=== PATIENT | male | born 1955 | race Native Hawaiian/Other Pacific Islander ===

== ENCOUNTER 2019-03-31 10:53 | Emergency (ER) | payer MEDICAID, MEDICARE ==
--- NOTE | 2019-03-31 13:02 | ED Physician Documentation ---
PD HPI SKIN - Stated complaint Stated Complaint: RASH ON FACE - Chief complaint Chief Complaint: Wound - History obtained from History obtained from: Patient - History of Present Illness Timing - onset: How many weeks ago (1) Timing - duration: Weeks (1) Timing - details: Gradual onset Pain level max: 0 Pain level now: 0 Location: Face Quality / character: Discolored (eryhtematous), Swelling. No: Itchy, Painful, Burning, Raised, Vesicular, Crusted, Draining Improved by: Other (hasn't tried anything) Worsened by (comment): COMMENT (blowing his nose) Associated symptoms: No: Fever, Myalgias, Joint pain, Headache, Facial swelling, Dyspnea, Abd pain, N/V/D, Urinary sx Contributing factors: No: Exposed to medication, Exposed to food, Exposed to soa p / lotion, Exposed to Poison benton/oak, Insect bite /sting, Recent illness Recently seen: Not recently seen Review of Systems Constitutional: denies: Fever, Chills GI: denies: Vomiting Neurologic: denies: Headache PD PAST MEDICAL HISTORY - Past Medical History Past Medical History: Yes Cardiovascular: Hypertension - Past Surgical History Past Surgical History: Yes General: Appendectomy - Present Medications Home Medications: Ambulatory Orders Medication Instructions Recorded Confirmed predniSONE [Prednisone] 20 mg PO DAILY #5 tablet 03/31/19 - Allergies Allergies/Adverse Reactions: Allergies Allergy/AdvReac Type Severity Reaction Status Date / Time No Known Drug Allergies Allergy Verified 11/26/13 14:02 - Living Situation Living Arrangement: reports: At home - Social History Does the pt smoke?: Yes Smoking Status: Current some day smoker Does the pt drink ETOH?: No Does the pt have substance abuse?: No - Immunizations Immunizations are current?: No Immunizations: No immun - POLST Patient has POLST: No PD ED PE NORMAL - Vitals Vital signs reviewed: Yes - General General: Alert and oriented X 3, No acute distress - HEENT HEENT: Moist mucous membranes - Neck Neck: Supple, no meningeal sign - Cardiac Cardiac: RRR - Respiratory Respiratory: No respiratory distress, Clear bilaterally - Derm Derm: Warm and dry, Other (Erythematous rash to the bilateral nasolabial folds.) - Neuro Neuro: Alert and oriented X 3 - Psych Psych: Normal mood, Normal affect Results - Vitals Vitals: Vital Signs - 24 hr 03/31/19 11:19 Temperature 37 C Heart Rate 77 Respiratory 18 Rate Blood Pressure 132/95 H O2 Saturation 99 Oxygen O2 Source Room air PD MEDICAL DECISION MAKING - ED course Complexity details: considered differential, d/w patient ED course: 63-year-old male with a facial rash. Will place on a small dose of prednisone and see if this helps some. No fevers. No coughing. No signs of anaphylaxis. Patient counseled regarding signs and symptoms for which I believe and urgent re-evaluation would be necessary. Patient with good understanding of and agreement to plan and is comfortable going home at this time This document was made in part using voice recognition software. While efforts are made to proofread this document, sound alike and grammatical errors may occu r. Departure - Departure Disposition: 01 Home, Self Care Clinical Impression: Dermatitis Condition: Good Instructions: ED Dermatitis Non Specific Rash Follow-Up: your,doctor in 1 week [Other] Prescriptions: predniSONE [Prednisone] 20 mg PO DAILY #5 tablet Comments: Use the steroids as prescribed. Return if you worsen. Follow-up with your doctor for further care.
[2019-03-31 13:24] VITALS: BP 174/101
== END 2019-03-31 13:24 | disposition home or self-care (01) ==
LOC: ED 10:53
DX: L30.9 Dermatitis, unspecified (principal); I10 Essential (primary) hypertension; F17.200 Nicotine dependence, unspecified, uncomplicated
CPT/HCPCS: 99282; 99284

== ENCOUNTER 2020-01-23 12:49 | Emergency (ER) | payer MEDICARE, MEDICAID ==
[2020-01-23 12:56] VITALS: BP 179/86
--- NOTE | 2020-01-23 13:39 | ED Physician Documentation ---
PD HPI SKIN - Stated complaint Stated Complaint: RASH - Chief complaint Chief Complaint: Wound - History obtained from History obtained from: Patient - History of Present Illness Timing - onset: Other (1 year) Pain level max: 0 Pain level now: 0 Location: Face Quality / character: Itchy. No: Painful, Burning Improved by: Oral steroids Worsened by (comment): COMMENT (nothing) Associated symptoms: No: Fever, Myalgias, Joint pain, Headache, Facial swelling, Dyspnea, Abd pain, N/V/D, Urinary sx Recently seen: Not recently seen - Additional information Additional information: 64-year-old male presents to the emergency department with a recurrent rash on his face. He was seen here about 10 months ago for the same, cleared up with steroids, now has recurred. He never followed up with his doctor. Nothing makes it better or worse. No new soaps, detergents, lotions. No fevers. No chills. Review of Systems Constitutional: denies: Fever, Chills Nose: denies: Rhinorrhea / runny nose, Congestion Throat: denies: Sore throat Cardiac: denies: Chest pain / pressure Respiratory: denies: Cough GI: denies: Nausea, Vomiting Musculoskeletal: denies: Neck pain, Back pain Neurologic: denies: Headache PD PAST MEDICAL HISTORY - Past Medical History Cardiovascular: Hypertension - Past Surgical History Past Surgical History: Yes General: Appendectomy - Present Medications Home Medications: Ambulatory Orders Medication Instructions Recorded Confirmed predniSONE [Deltasone] 10 mg PO [id number] #42 tab 01/23/20 - Allergies Allergies/Adverse Reactions: Allergies Allergy/AdvReac Type Severity Reaction Status Date / Time No Known Drug Allergies Allergy Verified 01/23/20 12:56 - Social History Does the pt smoke?: Yes Smoking Status: Current every day smoker Does the pt drink ETOH?: No Does the pt have substance abuse?: No - Immunizations Immunizations are current?: No Immunizations: No immun - POLST Patient has POLST: No PD ED PE NORMAL - Vitals Vital signs reviewed: Yes - General General: Alert and oriented X 3, No acute distress - HEENT HEENT: Moist mucous membranes - Neck Neck: Supple, no meningeal sign - Cardiac Cardiac: RRR - Respiratory Respiratory: No respiratory distress, Clear bilaterally - Derm Derm: Warm and dry, Other (mild erythematous rash to the nose and cheeks and forehead. no scaling. no warmth.) - Neuro Neuro: Alert and oriented X 3 Results - Vitals Vitals: Vital Signs - 24 hr 01/23/20 12:53 Temperature 36.4 C L Heart Rate 93 Respiratory 20 Rate Blood Pressure 179/86 H O2 Saturation 96 Oxygen O2 Source Room air PD MEDICAL DECISION MAKING - ED course Complexity details: reviewed old records, considered differential, d/w patient ED course: Patient is a 64-year-old male who presents to the emergency department the facial rash today. Improved with steroids last time, I will place him back on prednisone. We will have him follow-up with his doctor for further care. No signs of infection. Patient counseled regarding signs and symptoms for which I believe and urgent re-evaluation would be necessary. Patient with good understanding of and agreement to plan and is comfortable going home at this time This document was made in part using voice recognition software. While efforts are made to proofread this document, sound alike and grammatical errors may occur. Departure - Departure Disposition: 01 Home, Self Care Clinical Impression: Dermatitis Condition: Good Instructions: ED Dermatitis Non Specific Rash Follow-Up: your,doctor in 1 week [Other] Prescriptions: predniSONE [Deltasone] 10 mg PO [id number] #42 tab Comments: Follow-up with your doctor for further care. You likely need a referral to a comprehensive advisor. Return if you worsen Discharge Date/Time: 01/23/20 13:57
== END 2020-01-23 13:57 | disposition home or self-care (01) ==
LOC: ED 12:49
DX: L30.9 Dermatitis, unspecified (principal); I10 Essential (primary) hypertension; F17.200 Nicotine dependence, unspecified, uncomplicated
CPT/HCPCS: 99282; 99284

== ENCOUNTER 2020-04-17 09:40 | Emergency (ER) | payer MEDICARE, MEDICAID ==
--- NOTE | 2020-04-17 10:08 | ED Physician Documentation ---
PD HPI SKIN - Stated complaint Stated Complaint: RASH ON FACE - Chief complaint Chief Complaint: General - History obtained from History obtained from: Patient - History of Present Illness Timing - onset: How many months ago (2-3) Timing - duration: Months (2-3) Timing - details: Intermittant (He has had a scaly and red irritated rash intermittently on the face over the last few months. It will come and go. Seems to improve with lotions. Moderate improvement with oral steroids. It is recurred in the last week.) Location: Face. No: Bodywide Quality / character: Itchy (mildly), Burning, Discolored (red), Swelling, Other (scaly). No: Vesicular, Draining Improved by: No: Oral steroids (had been seen couple times and Rx oral steroids with only moderate improvement. Had improved best with some topical skin lotions/creams. No rash bodywide.) Associated symptoms: Facial swelling. No: Fever, Myalgias, Dyspnea, N/V/D Contributing factors: Exposed to soap / lotion (He does use generally Dove type soaps. He does not regularly use any skin creams for moisturizing.). No: Exposed to medication, Exposed to food Recently seen: Emergency Dept. No: Clinic Review of Systems Constitutional: denies: Fever Nose: denies: Rhinorrhea / runny nose, Congestion Throat: denies: Sore throat Respiratory: denies: Cough GI: denies: Nausea, Vomiting Musculoskeletal: denies: Joint pain, Joint swelling Neurologic: denies: Generalized weakness, Focal weakness, Headache PD PAST MEDICAL HISTORY - Past Medical History Past Medical History: Yes Cardiovascular: Hypertension Respiratory: None Neuro: None Endocrine/Autoimmune: None GI: None : None HEENT: None Psych: None Musculoskeletal: None Derm: Other - Past Surgical History Past Surgical History: Yes General: Appendectomy - Present Medications Home Medications: Ambulatory Orders Medication Instructions Recorded Confirmed Clotrimazole/Betamethasone Crm 1 applic TOP BID 7 Days #45 g 04/17/20 [Lotrisone Cream] Emollient Combination No.114 1 applic TOP BID #1 bottle 04/17/20 [Eucerin Advanced Repair] - Allergies Allergies/Adverse Reactions: Allergies Allergy/AdvReac Type Severity Reaction Status Date / Time No Known Drug Allergies Allergy Verified 04/17/20 09:45 - Social History Does the pt smoke?: Yes Smoking Status: Current some day smoker Does the pt drink ETOH?: Yes Does the pt have substance abuse?: No - Immunizations Immunizations are current?: No Immunizations: No immun - POLST Patient has POLST: No PD ED PE NORMAL - Vitals Vital signs reviewed: Yes - General General: Alert and oriented X 3 - HEENT HEENT: Moist mucous membranes, Pharynx benign - Neck Neck: Supple, no meningeal sign, No adenopathy - Cardiac Cardiac: RRR, No murmur - Respiratory Respiratory: Clear bilaterally - Derm Derm: Normal color, Warm and dry, Other (The face has a hyperkeratotic scaly rash with red base and irregular borders localized to the eyebrows and above the eyebrows, bridge of the nose, sides of the face and around the chin and corners of the mouth. There is a little bit behind the ears. None in the scalp itself.) - Extremities Extremities: Normal ROM s pain - Neuro Neuro: Alert and oriented X 3, No motor deficit, Normal speech Results - Vitals Vitals: Vital Signs - 24 hr 04/17/20 04/17/20 09:45 10:40 Temperature 37.2 C 37.4 C Heart Rate 82 81 Respiratory 16 18 Rate Blood Pressure 187/97 H 174/78 H O2 Saturation 96 99 Oxygen O2 Source Room air PD MEDICAL DECISION MAKING - ED course Complexity details: considered differential (Appears consistent with seborrhea. Distribution does not fit for rosacea. He does not have anything body wide so I doubt psoriasis. Prescribed topical treatments for it.), d/w patient Departure - Departure Disposition: 01 Home, Self Care Clinical Impression: Seborrhea, Rash of face Condition: Stable Record reviewed to determine appropriate education?: Yes Instructions: ED Dermatitis Non Specific Rash Follow-Up: [facility] [Provider Group] [facility] [Provider Group] Prescriptions: Emollient Combination No.114 [Eucerin Advanced Repair] 1 applic TOP BID #1 bottle Clotrimazole/Betamethasone Crm [Lotrisone Cream] 1 applic TOP BID 7 Days #45 g Comments: I would suggest not using a true soap such as Dove, as these can be drying for the skin. Instead use something like a lanolin or Powers butter type of soap gently on the face for cleaning just once daily. Add the Chlortrimazole with betamethasone cream lightly onto the affected areas twice daily for the next week. This is an antifungal with the steroid. That should decrease the rash back to normal. Also use a mild moisturizing cream to the face such as Eucerin once or twice daily starting now but definitely after the medication cream is done to try to reduce recurrent episodes. Follow-up with primary care or dermatology for further treatments if not improved. Discharge Date/Time: 04/17/20 10:46
[2020-04-17 10:40] VITALS: BP 174/78
== END 2020-04-17 10:46 | disposition home or self-care (01) ==
LOC: ED 09:40
DX: L21.9 Seborrheic dermatitis, unspecified (principal); I10 Essential (primary) hypertension; F17.200 Nicotine dependence, unspecified, uncomplicated
CPT/HCPCS: 99282; 99284

== ENCOUNTER 2020-10-15 11:53 | Emergency (ER) | payer MEDICARE, MEDICAID ==
--- NOTE | 2020-10-15 12:28 | ED Physician Documentation ---
History of Present Illness - Stated complaint Stated Complaint: DIZZY - Chief complaint Chief Complaint: General - History obtained from History obtained from: Patient - Additonal information Additional information: 65-year-old gentleman with no significant past medical history presents for evaluation of dizziness. He says basically he has been off balance when he walks for the last 5 months since he had his cataracts repaired. He had both cataracts done, separately, he noticed this after the first surgery. He says it never happens when he is laying flat or sitting in a chair, it is always when he is exercising and/or exerting himself by walking. He does have mild shortness of breath with this. No chest pain. He had not noticed it with he walks with his eyes closed but said he had not tried that, we tried it during the examination and he was still dizzy even with his eyes closed but while walking. He describes it as a swaying sensation when he walks. Review of Systems Ten Systems: 10 systems reviewed and negative Constitutional: denies: Fever, Chills, Weight Loss Cardiac: denies: Chest pain / pressure Respiratory: reports: Dyspnea. denies: Cough : reports: Other (nocturia x 2 per night) PD PAST MEDICAL HISTORY - Past Medical History Cardiovascular: Hypertension Respiratory: None Neuro: None Endocrine/Autoimmune: None GI: None : None HEENT: None Psych: None Musculoskeletal: None Derm: Other - Past Surgical History Past Surgical History: Yes General: Appendectomy - Present Medications Home Medications: Ambulatory Orders Medication Instructions Recorded Confirmed Clotrimazole/Betamethasone Crm 1 applic TOP BID 7 Days #45 g 04/17/20 [Lotrisone Cream] Emollient Combination No.114 1 applic TOP BID #1 bottle 04/17/20 [Eucerin Advanced Repair] - Allergies Allergies/Adverse Reactions: Allergies Allergy/AdvReac Type Severity Reaction Status Date / Time No Known Drug Allergies Allergy Verified 10/15/20 12:05 - Social History Does the pt smoke?: Yes Smoking Status: Current some day smoker Does the pt drink ETOH?: Yes Does the pt have substance abuse?: No - Family History Family history: reports: Non contributory - Immunizations Immunizations are current?: No Immunizations: No immun - POLST Patient has POLST: No PD ED PE NORMAL - Vitals Vital signs reviewed: Yes - General General: Alert and oriented X 3, No acute distress - HEENT HEENT: PERRL, EOMI (No nystagmus) - Neck Neck: Supple, no meningeal sign, No bony TTP - Cardiac Cardiac: RRR, No murmur - Respiratory Respiratory: No respiratory distress, Clear bilaterally - Abdomen Abdomen: Normal bowel sounds, Soft, Non tender - Back Back: No CVA TTP, No spinal TTP - Derm Derm: Normal color, Warm and dry - Extremities Extremities: No deformity, No tenderness to palpate, Normal ROM s pain, No edema, No calf tenderness / cord - Neuro Neuro: Alert and oriented X 3, No motor deficit, No sensory deficit, Other (Normal gait, may be very slightly ataxic, normal [id number] and [id number] testing) Eye Opening: Spontaneous Motor: Obeys Commands Verbal: Oriented GCS Score: 15 Results - Vitals Vitals: Vital Signs - 24 hr 10/15/20 10/15/20 12:00 12:40 Temperature 36.9 C Heart Rate 85 67 Respiratory 18 13 Rate Blood Pressure 152/86 H 159/79 H O2 Saturation 98 97 Oxygen O2 Source Room air - EKG (time done) 1300 Rate: Rate (enter#) (60) Rhythm: NSR [place]: Normal Intervals: Normal SD QRS: Normal Ischemia: Normal ST segments Computer interpretation: Agree with computer - Labs Labs: Laboratory Tests 10/15/20 10/15/20 10/15/20 12:33 12:33 12:33 WBC 6.8 RBC 5.90 Hgb 17.0 Hct 51.4 MCV 87.1 MCH 28.8 MCHC 33.1 RDW 12.6 Plt Count 332 MPV 8.9 Neut # (Auto) 3.6 Lymph # (Auto) 2.5 [place] # (Auto) 0.5 Eos # (Auto) 0.2 Baso # (Auto) 0.1 Absolute Nucleated RBC 0.00 Nucleated RBC % 0.0 Sodium 138 Potassium 3.8 Chloride 102 Carbon Dioxide 26 Anion Gap 10.0 BUN 16 Creatinine 1.0 Estimated GFR (MDRD) 75 L Glucose 107 H Calcium 9.5 Magnesium 2.4 Total Bilirubin 1.1 H AST 21 ALT 14 Alkaline Phosphatase 95 Troponin I High Sens 4.3 Total Protein 8.1 Albumin 4.7 Globulin 3.4 Albumin/Globulin Ratio 1.4 - Rads (name of study) HEAD CT Radiology: EMP read contemporaneously (normal) PD MEDICAL DECISION MAKING - ED course ED course: 65-year-old gentleman very subacute to chronic dizziness when upright which was temporally related to cataract repair. No pertinent positive findings today and an outpatient work-up and primary care were advised. Departure - Departure Disposition: Home, Self Care Clinical Impression: Dizzy Condition: Good Record reviewed to determine appropriate education?: Yes Instructions: ED Dizziness [facility] Follow-Up: Dahiana Webster MD [Provider Admit Priv/Credential] - Comments: EKG, labs, head CT are all normal today, there is no obvious cause for the dizziness but given the length of time it sounds benign. That said it is important to establish primary care, Dr. Dahiana Webster is our on-call physician for primary care follow-up from the emergency department. Please give his office a call, return if worsening.
[2020-10-15 12:38] LABS: BASOPHILS # (AUTO) 0.1 10^3/uL (0.0-0.1); EOSINOPHILS # (AUTO) 0.2 10^3/uL (0.0-0.7); EOSINOPHILS % (AUTO) 2.9 %; HCT - HEMATOCRIT 51.4 % (42.0-52.0); LYMPHOCYTES # (AUTO) 2.5 10^3/uL (1.5-3.5); LYMPHOCYTES % (AUTO) 36.5 %; MEAN CORPUSCULAR HEMOGLOBIN 28.8 pg (27.0-31.0); MEAN CORPUSCULAR HGB CONC 33.1 g/dL (32.0-36.0); MEAN CORPUSCULAR VOLUME 87.1 fL (80.0-94.0); MEAN PLATELET VOLUME 8.9 fL (7.4-11.4); MONOCYTES # (AUTO) 0.5 10^3/uL (0.0-1.0); MONOCYTES % (AUTO) 6.6 %; NEUTROPHILS # (AUTO) 3.6 10^3/uL (1.5-6.6); NEUTROPHILS % (AUTO) 52.9 %; PLT - PLATELET COUNT 332 10^3/uL (130-450); RED CELL DISTRIBUTION WIDTH 12.6 % (12.0-15.0); WHITE BLOOD COUNT 6.8 x10^3/uL (4.8-10.8)
[2020-10-15 12:41] VITALS: BP 159/79
[2020-10-15 12:59] LABS: ALBUMIN 4.7 g/dL (3.2-5.5); ALBUMIN/GLOBULIN RATIO 1.4 (1.0-2.2); BILIRUBIN,TOTAL 1.1 mg/dL (0.2-1.0); CALCIUM 9.5 mg/dL (8.5-10.3); MAGNESIUM 2.4 mg/dL (1.7-2.8); POTASSIUM 3.8 mmol/L (3.5-5.0); TOTAL PROTEIN 8.1 g/dL (6.7-8.2)
--- NOTE | 2020-10-15 13:16 | CT Report ---
PROCEDURE: HEAD WO INDICATIONS: dizzyness TECHNIQUE: Noncontrast 4.5 mm thick angled axial sections acquired from the foramen magnum to the vertex. For r adiation dose reduction, the following was used: automated exposure control, adjustment of mA and/or kV according to patient size. COMPARISON: None. FINDINGS: Image quality: Excellent. CSF spaces: Basal cisterns are patent. No extra-axial fluid collections. Ventricles are normal in size and shape. Brain: No midline shift. No intracranial masses or hemorrhage. [place]-white matter interface is norm al. Skull and face: Calvarium and visualized facial bones are intact, without suspicious lesions. Sinuses: Visualized sinuses and mastoids are clear. IMPRESSION: Normal for age, source of current symptoms is not seen. Depending on the clinical status follow-up by MR scanning may be warranted. Reviewed by: Mathew Mckee MD on 10/15/2020 1:14 PM PDT Approved by: Mathew Mckee MD on 10/15/2020 1:14 PM PDT Station ID: [id number]
== END 2020-10-15 13:41 | disposition home or self-care (01) ==
LOC: ED 11:53
DX: R42 Dizziness and giddiness (principal); I10 Essential (primary) hypertension; F17.200 Nicotine dependence, unspecified, uncomplicated
CPT/HCPCS: 36415; 80053; 83735; 84484; 85025; 93005; 99284

== ENCOUNTER 2021-06-21 09:30 | Emergency (ER) | payer MEDICARE, MEDICAID ==
[2021-06-21 09:44] VITALS: BP 172/100
--- NOTE | 2021-06-21 11:00 | ED Physician Documentation ---
History of Present Illness - Stated complaint Stated Complaint: RASH - Chief complaint Chief Complaint: Wound - History obtained from History obtained from: Patient - History of Present Illness Timing: Other (3-6 months) Pain level max: 4 Pain level now: 3 - Additonal information Additional information: 66-year-old male presents to the emergency department with a rash to the bilateral anterior shins. This been present for 3 to 6 months. Described as itchy. Nothing makes it better or worse. Has had similar rashes in the past. Has not taken anything for this. No new soaps, detergents, etc. No fevers. No chills. Not on any medications at home. Review of Systems Constitutional: denies: Fever, Chills Respiratory: denies: Cough GI: denies: Nausea, Vomiting, Diarrhea Skin: denies: Rash Musculoskeletal: denies: Neck pain, Back pain Neurologic: denies: Headache PD PAST MEDICAL HISTORY - Past Medical History Cardiovascular: Hypertension Respiratory: None Neuro: None Endocrine/Autoimmune: None GI: None : None HEENT: None Psych: None Musculoskeletal: None Derm: Other - Past Surgical History Past Surgical History: Yes General: Appendectomy - Present Medications Home Medications: Ambulatory Orders Medication Instructions Recorded Confirmed predniSONE [Deltasone] 10 mg PO [id number] #42 tab 06/21/21 - Allergies Allergies/Adverse Reactions: Allergies Allergy/AdvReac Type Severity Reaction Status Date / Time No Known Drug Allergies Allergy Verified 06/21/21 09:42 - Social History Does the pt smoke?: Yes Smoking Status: Current every day smoker Does the pt drink ETOH?: Yes Does the pt have substance abuse?: No - Immunizations Immunizations are current?: No Immunizations: No immun - POLST Patient has POLST: No PD ED PE NORMAL - Vitals Vital signs reviewed: Yes - General General: Alert and oriented X 3, No acute distress - HEENT HEENT: Moist mucous membranes - Neck Neck: Supple, no meningeal sign - Cardiac Cardiac: RRR, Strong equal pulses - Respiratory Respiratory: No respiratory distress, Clear bilaterally - Derm Derm: Warm and dry - Extremities Extremities: Other (Erythematous patches with scaling to the bilateral anterior shins. Excoriation ortega present. No vesicles. No pustules.) - Neuro Neuro: Alert and oriented X 3 Results - Vitals Vitals: Vital Signs - 24 hr 06/21/21 09:42 Temperature 36.8 C Heart Rate 88 Respiratory 19 Rate Blood Pressure 172/100 H O2 Saturation 100 Oxygen O2 Source Room air PD MEDICAL DECISION MAKING - ED course Complexity details: considered differential, d/w patient ED course: 66-year-old male with a dermatitis. Possible psoriasis. We will trial on steroids. Recommend that he follow-up with the primary care provider and dermatology as has been recommended the last several visits to the emergency department. He also needs to follow-up with a primary care provider regarding his hypertension and to screen for other chronic medical conditions. Patient counseled at length. Patient counseled regarding signs and symptoms for which I believe and urgent re-evaluation would be necessary. Patient with good understanding of and agreement to plan and is comfortable going home at this time This document was made in part using voice recognition software. While efforts are made to proofread this document, sound alike and grammatical errors may occur. Departure - Departure Disposition: 01 Home, Self Care Clinical Impression: Dermatitis Hypertension Qualifiers: Hypertension type: unspecified Qualified Code(s): I10 - Essential (primary) hypertension Condition: Good Instructions: ED Dermatitis Non Specific Rash, ED HTN Established Follow-Up: [facility] [place] [Provider Group] [facility] [place] [Provider Group] [facility] [Provider Group] Prescriptions: predniSONE [Deltasone] 10 mg PO [id number] #42 tab Comments: Your prescriptions were sent to [facility] in [place]. Please follow-up with your doctor for further care. It is important that you establish yourself with a primary care doctor as we have discussed on your last several visits. You have hypertension and other underlying medical issues that do need to be addressed by a primary care provider. Return if you worsen Discharge Date/Time: 06/21/21 11:10
== END 2021-06-21 11:10 | disposition home or self-care (01) ==
LOC: ED 09:30
DX: L30.9 Dermatitis, unspecified (principal); I10 Essential (primary) hypertension; F17.200 Nicotine dependence, unspecified, uncomplicated
CPT/HCPCS: 99282; 99284